=== PATIENT | male | born 1995 | race African-American/Black ===

== ENCOUNTER 2023-07-16 21:44 | Emergency (ER) | payer MEDICAID ==
[~2023-07-16] VITALS: Ht 167.6 cm; Wt 93.0 kg
[2023-07-16 21:51] VITALS: PULSE 125; RESP 12; TEMP 100.1; O2SAT 97
== END 2023-07-16 22:50 | disposition left against medical advice (07) ==
LOC: ER 21:44
DX: M25.561 Pain in right knee (principal); Z53.21 Procedure and treatment not carried out due to patient leaving prior to being seen by health care provider
CPT/HCPCS: 99281